=== PATIENT | female | born 1995 | race Caucasian/White ===

== ENCOUNTER 2017-07-21 13:52 | Emergency (ER) | payer SELFPAY ==
[~2017-07-21 13:52] MED LIST: MICRONOR PO; OXYC-360 PO; PRENTAB72 PO; SENN1TAB11 PO
[2017-07-21 15:08] VITALS: BP 134/79; PULSE 76; RESP 18; TEMP 97.6; O2SAT 100
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
[2017-07-21] MEDS ORDERED: IBUPROFEN 800 MG TAB PO ONE (19:45)
[2017-07-21] MEDS ORDERED: IBUP1TAB7 PO (19:52)
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
== END 2017-07-21 20:16 | disposition home or self-care (01) ==
LOC: NEPK 13:52
DX: S62.352A Nondisplaced fracture of shaft of third metacarpal bone, right hand, initial encounter for closed fracture (principal); V19.9XXA Pedal cyclist (driver) (passenger) injured in unspecified traffic accident, initial encounter; Y93.55 Activity, bike riding
CPT/HCPCS: 29125; 73070; 73130